=== PATIENT | female | born 1980 | race Caucasian/White ===

== ENCOUNTER 2018-07-01 09:24 | Day surgery (SDC) | payer OTHER | END 2018-07-01 17:20 | disposition home or self-care (01) | LOC: CIR.AMB 09:24 | DX: N84.0 Polyp of corpus uteri (principal) ==

== ENCOUNTER → 2019-10-07 | Outpatient (CLI) | payer OTHER | END | disposition home or self-care (01) | LOC: SONOGRAMA 10:10 → RX STUDY 10:15 | PROVIDERS: ATTEND Obstetrics & Gynecology | DX: N92.5 Other specified irregular menstruation (principal) ==

== ENCOUNTER 2022-09-25 06:40 | Day surgery (SDC) | payer OTHER | END 2022-09-25 18:55 | disposition home or self-care (01) | LOC: CIR.AMB 06:40 | PROVIDERS: ATTEND Obstetrics & Gynecology | DX: N84.0 Polyp of corpus uteri (principal); Z20.822 Contact with and (suspected) exposure to COVID-19 ==